=== PATIENT | female | born 1995 | race Caucasian/White ===

== ENCOUNTER 2019-12-24 10:12 | Inpatient (IN) | payer OTHER ==
[2019-12-24] MEDS ORDERED: LIDOCAINE 1% INJ-PF (10 MG/ML) 30 ML SDV ONE (10:22)
[2019-12-24] MEDS ORDERED: MISOPROSTOL 0.2 MG TABLET ONE (10:22)
[2019-12-24] MEDS ORDERED: OXYTOCIN/0.9 % SODIUM CHLORIDE 30 UNIT/500 ML RTUINJ ONE (10:22)
[2019-12-24] MEDS ORDERED: OXYTOCIN 10 UNIT/ML VIAL ONE (10:22)
[2019-12-24] MEDS ORDERED: RINGERS SOLUTION,LACTATED 1,000 ML IV ONE (10:26)
[2019-12-24] MEDS ORDERED: PROMETHAZINE HCL 25 MG SUPP.RECT PR PRN (11:14)
[2019-12-24] MEDS ORDERED: DIPH/PERTUSS(ACELL)/TETANUS VAC/PF 0.5 ML SYR (>=10YO) IM PRN (11:14)
[2019-12-24] MEDS ORDERED: PROMETHAZINE HCL 25 MG TABLET PO PRN (11:14)
[2019-12-24] MEDS ORDERED: DIPHENHYDRAMINE HCL 25 MG CAPSULE PO PRN (11:14)
[2019-12-24] MEDS ORDERED: OXYTOCIN/0.9 % SODIUM CHLORIDE 30 UNIT/500 ML RTUINJ IV PRN (11:14)
[2019-12-24] MEDS ORDERED: PROMETHAZINE HCL INJ 25 MG/1 ML VIAL IV PRN (11:14)
[2019-12-24] MEDS ORDERED: MAGNESIUM HYDROXIDE SUSP 30 ML UDCUP PO PRN (11:14)
[2019-12-24] MEDS ORDERED: ZOLPIDEM TARTRATE 5 MG TABLET PO PRN (11:14)
[2019-12-24] MEDS ORDERED: NA PHOS,M-B/NA PHOS,DI-BA (ADULT) 133 ML ENEMA PR PRN (11:14)
[2019-12-24] MEDS ORDERED: PSEUDOEPHEDRINE HCL 30 MG TABLET PO PRN (11:14)
[2019-12-24] MEDS ORDERED: DIBUCAINE 1% OINTMENT 28 GM TP PRN (11:14)
[2019-12-24] MEDS ORDERED: ACETAMINOPHEN WITH CODEINE #3 TABLET PO PRN ×2 (11:14)
[2019-12-24] MEDS ORDERED: BENZOCAINE/MENTHOL AEROSOL SPRAY 56 ML TOP PRN (11:14)
[2019-12-24] MEDS ORDERED: ACETAMINOPHEN 325 MG TABLET PO PRN (11:14)
[2019-12-24] MEDS ORDERED: MEASLES,MUMPS&RUBELLA VACC/PF 0.5 ML VIAL SUBCUT PRN (11:14)
[2019-12-24] MEDS ORDERED: GLYCERIN/WITCH HAZEL LEAF 1 EACH MED..WIPE TP PRN (11:14)
[2019-12-24 11:35] LABS: ABSOLUTE LYMPHOCYTES (AUTO) 1.2 10^3/uL (0.5-4.7); ABSOLUTE MONOCYTES (AUTO) 0.6 10^3/uL (0.1-1.4); ABSOLUTE NEUT (AUTO) 11.4 10^3/uL (1.7-8.2); BASOPHILS % (AUTO) 0.2 % (0-2); EOSINOPHILS % (AUTO) 0.1 % (0-6); HEMATOCRIT 35.6 % (36.0-47.0); HEMOGLOBIN 11.8 g/dL (12.0-15.5); LYMPHOCYTES % (AUTO) 8.9 % (13-45); MEAN CORPUSCULAR HEMOGLOBIN 26.6 pg (27.0-33.4); MEAN CORPUSCULAR HGB CONC 33.1 g/dL (32.0-36.0); MEAN CORPUSCULAR VOLUME 80 fl (80-97); MONOCYTES % (AUTO) 4.7 % (3-13); PLATELET COUNT 216 10^3/uL (150-450); RED BLOOD COUNT 4.44 10^6/uL (3.72-5.28); RED CELL DISTRIBUTION WIDTH 15.5 % (11.5-14.0); SEGMENTED NEUTROPHILS % (AUTO) 86.1 % (42-78); TOTAL CELLS COUNTED % (AUTO) 100 %; WHITE BLOOD COUNT 13.3 10^3/uL (4.0-10.5)
[2019-12-24] MEDS ORDERED: IBUPROFEN 800 MG TABLET ONE (11:35)
[2019-12-24] MEDS: IBUPROFEN 800 MG TABLET PO SCH ×2 (11:38→21:32)
--- NOTE | 2019-12-24 12:16 | Delivery Summary ---
Del Sum A-C Datetime Report Generated by CPN: 12/24/2019 12:16 DELIVERY PERSONNEL DELIVERY PERSONNEL: [id number] Delivery Doctor:: Mildred Breaux CNM Labor and Delivery Nurse:: Cheyenne Domingo RNjewel bearing driller Nurse:: Dafne Henson RN Nursery Nurse:: Lakia Wallace RN Staff Field Engineer/CHEMICAL DEPENDENCY PROFESSIONAL: Iza Garcia, ST MATERNAL INFORMATION Delivery Anesthesia: None Medications After Delivery: Pitocin 30 Units in 500ml NS/D5W Delivery QBL: 250 Maternal Complications: Precipitous Labor (<3hrs) LABOR SUMMARY EDC: 12/20/2019 00:00 No. Babies in Womb: 1 Attempted: No Labor Anesthesia: None LABOR INFORMATION Reason for Induction: Not Applicable Onset of Labor: 12/24/2019 08:30 Complete Dilatation: 12/24/2019 10:52 Oxytocin: N/A Group B Beta Strep: negative Antibiotics # of Doses: 0 Name of Antibiotic Given: n/a Steroids Given: None Reason Steroids Not Administered: Not Applicable MEMBRANES Membranes Rupture Method: Spontaneous Rupture of Membranes: 12/24/2019 10:00 Length of Rupture (hr): 0.95 Amniotic Fluid Color: Clear Amniotic Fluid Amount: Small Amniotic Fluid Odor: None STAGES OF LABOR Stage 1 hr: 2 Stage 1 min: 22 Stage 2 hr: 0 Stage 2 min: 5 Stage 3 hr: 0 Stage 3 min: 8 Total Time in Labor hr: 2 Total Time in Labor min: 35 VAGINAL DELIVERY Episiotomy: None Laceration #1: None Laceration Extension #1: N/A Sponge Count Correct: N/A Sharps Count Correct: N/A CSECTION DELIVERY Primary Indication: N/A Secondary Indication: N/A CSection Incidence: N/A Labor: N/A Elective: N/A CSection Incision: N/A BABY A INFORMATION Delivery Date/Time: 12/24/2019 10:57 Method of Delivery: Vaginal Nurse Controlled Delivery: No Born in Route : No : N/A Forceps: N/A Vacuum Extraction: N/A Shoulder Dystocia : Yes SHOULDER DYSTOCIA BABY A Delivery of Head: 12/24/2019 10:56 Time Head to Delivery : 1.0 1st Intervention to Resolve: Gentle Attempt at Traction, Assisted by Maternal Expulsive Efforts 2nd Intervention to Resolve: McRobert's Maneuver 3rd Intervention to Resolve: Suprapubic Pressure Verify NO Fundal Pressure: No Fundal Pressure Applied Arm Under Symphisis at Del: Left PRESENTATION/POSITION BABY A Presentation: Cephalic Cephalic Presentation: Vertex Vertex Position: Left Occipital Anterior Breech Presentation: N/A PLACENTA INFORMATION BABY A Placenta Delivery Time : 12/24/2019 11:05 Placenta Method of Delivery: Spontaneous Placenta Status: Delivered SCORES BABY A Heart Rate 1 min: >100 bpm Resp Effort 1 min: Good Cry Reflex Irritability 1 min: Cough or Sneeze or Pulls Away Muscle Tone 1 min: Active Motion Color 1 min: Blue/Pale Resuscitation Effort 1 min: Tactile Stimulation SCORE 1 MIN: 8 Heart Rate 5 min: >100 bpm Resp Effort 5 min: Good Cry Reflex Irritability 5 min: Cough or Sneeze or Pulls Away Muscle Tone 5 min: Active Motion Color 5 min: Body [place], Extremities Blue Resuscitation Effort 5 min: N/A SCORE 5 MIN: 9 INFANT INFORMATION BABY A Gestational Age at Delivery: 40.4 Gestational Status: Full Term- 39- 40.6 Weeks Infant Outcome : Liveborn Infant Condition : Stable Infant Sex: Male IDENTIFICATION BABY A Verification Date/Time: 12/24/2019 11:03 ID Band Number: [id number] Mother's Name Verified: Yes RN Verifying : B Baidy RN Additional Verifying Personnel: A Feuston RN WEIGHT/LENGTH BABY A Birthweight (gm): 4235 Infant Weight (lb): 9 Infant Weight (oz): 5 Infant Length (in): 21.00 Length (cm): 53.34 CORD INFORMATION BABY A No. Cord Vessels: 3 Nuchal Cord : Around Neck x1, Loose Cord Blood Taken: Yes-For Storage (Mom's Blood type +) Infant Suction: Mouth ASSESSMENT BABY A Physical Findings at Delivery: Bruising Physical Findings- Other: facial bruising Infant Respirations: Appears Normal Skin to Skin: Yes Skin to Skin Time (min): 60 Field Artillery Cannoneer/ALS Called : No Infant Care By: Farzana Wallace RN Transferred To: Remains with Mother BABY B INFORMATION : N/A SIGNATURES : I was personally available for consultation and serving as supervising physician for the MLP.
--- NOTE | 2019-12-24 12:16 | Birth Certificate Data ---
Cert Data Datetime Report Generated by CPN: 12/24/2019 12:16 CERTIFICATE DATA 47a. Care: Yes (12/24/2019 10:21:Anaid Crocker RN) 47b. Date of First Visit: 05/20/2019 00:00 (12/24/2019 10:21:Anaid Crocker RN) 47c. Date of Last Visit: 12/21/2019 00:00 (12/24/2019 10:21:Anaid Crocker RN) 47d. Number of Visits: 12 (12/24/2019 10:21:Anaid Crocker RN) 48a. Number of Prev Live Births: 1 (12/24/2019 10:21:Anaid Crocker RN) 48b. Now Livin (12/24/2019 10:21:Anaid Crocker RN) 48c. Live Births Now : 0 (12/24/2019 10:21:QS system process) 48d. Date of Last Live : 03/31/2017 00:00 (12/24/2019 10:21:Anaid Crocker RN) 48e. Losses: 0 (12/24/2019 10:21:Anaid Crocker RN) RISK FACTORS IN THIS 49a. Diabetes: No (12/24/2019 10:21:Cheyenne Domingo RN) 49b. Hypertension: No (12/24/2019 10:21:Cheyenne Domingo RN) 49c. Previous Births: 0 (12/24/2019 10:21:Anaid Crocker RN) 49d. Stillborns: No (12/24/2019 10:21:Anaid Crocker RN) 49d. IUGR: No (12/24/2019 10:21:Anaid Crocker RN) 49e. Infertility Treatment: No (12/24/2019 10:21:Cheyenne Domingo RN) 49f. Previous Cesareans: 0 (12/24/2019 10:21:Anaid Crocker RN) Mother's Height 50b. Height Inches: 61 (12/24/2019 11:57:QS system process) Mother's Weight 51a. Pre- Weight (lbs): 173 (12/24/2019 10:21:Anaid Crocker RN) 51b. Weight at Delivery (lbs): 238 (12/24/2019 11:57:QS system process) 52. Dt Last Normal Menses Began: 05/03/2019 00:00 (12/24/2019 10:21:Cheyenne Domingo RN) Infections Present/Treated 53a. Gonorrhea: No (12/24/2019 10:21:Cheyenne LEESA Domingo) Results this Hospital Visit : Negative (12/24/2019 10:21:Anaid Crocker RN) 53b. Syphilis: No (12/24/2019 10:21:Cheyenne Domingo RN) 53c. Chlamydia: No (12/24/2019 10:21:Cheyenne Domingo RN) Results this Hospital Visit: Negative (12/24/2019 10:21:Anaid Crocker RN) 53d. Hepatitis B: No (12/24/2019 10:21:Cheyenne Domingo RN) Results this Hospital Visit: Negative (12/24/2019 10:21:Anaid Crocker RN) 53e. Hepatitis C: Negative (12/24/2019 10:21:Anaid Crocker RN) 53h. Mother Tested for HBsAG: Yes (12/24/2019 10:21:Anaid Crocker RN) 53i. Date Tested: 05/11/2019 00:00 (12/24/2019 10:21:Anaid Crocker RN) 53j. Test Result: Negative (12/24/2019 10:21:Anaid Crocker RN) Obstetric Procedures 54a, b, c. Obstetric Procedures: Ultrasound (12/24/2019 10:21:Anaid Crocker RN) Cigarette Smoking Cigarette Smoking: Never Smoker. [id number] (12/24/2019 10:21:Cheyenne Domingo RN) 55a. 3 Months Before Preg - Ci (12/24/2019 10:21:June LEESA Domingo) 55b. 1st Trimester of Preg- Ci (12/24/2019 10:21:June LEESA Domingo) 55c. 2nd Trimester of Preg- Ci (12/24/2019 10:21:Cheyenne Domingo RN) 55d. 3rd Trimester of Preg- Ci (12/24/2019 10:21:June LEESA Domingo) Onset of Labor 56a. PROM >12 Hrs: 0.95 (12/24/2019 10:21:QS system process) 56b. Precipitous Labor <3 Hrs: 2 (12/24/2019 10:21:QS system process) 56c. Prolonged Labor > 20 Hrs: 2 (12/24/2019 10:21:QS system process) 57a. Induction of Labor: N/A (12/24/2019 10:21:Anaid Crocker RN) 57c. Non-Vertex Presentation A: Vertex (12/24/2019 10:21:Dafne Henson RN) 57d. Steroids - Lung Mat: None (12/24/2019 10:21:Anaid Crocker RN) 57d. Steroids - Lung Mat: Not Applicable (12/24/2019 10:21:Anaid Crocker RN) 57f. Mat [place] or Temp >100.4: 98.1 (12/24/2019 10:21:Cheyenne Domingo RN) 57g. Moderate/Heavy Meconium: Clear (12/24/2019 11:05:Cheyenne Domingo RN) 57h. Intolerance of Labor: N/A (12/24/2019 10:21:Anaid Crocker RN) : N/A (12/24/2019 10:21:Anaid Crocker RN) 57i. Epidural/Spinal Anesthesia: None (12/24/2019 10:21:Anaid Crocker RN) Method of Delivery 58a. Forceps - Unsuccessful A: N/A (12/24/2019 10:21:Dafne Henson RN) 58b. Vacuum - Unsuccessful A: N/A (12/24/2019 10:21:Dafne Henson RN) 58c. Presentation at 58c. Presentation at - A : Vertex (12/24/2019 10:21:Dafne Henson RN) 58c. Presentation at - A : N/A (12/24/2019 10:21:Anaid Crocker RN) 58c. Presentation at - A : Cephalic (12/24/2019 10:21:Anaid Crocker RN) Final Route and Method of Del 58d. Baby A Route/Delivery: Vaginal (12/24/2019 10:57:Cheyenne Domingo RN) 58e. Trial of Labor Attempted: No (12/24/2019 10:21:Anaid Crocker RN) 58e. Trial of Labor Attempted A: N/A (12/24/2019 10:21:Anaid Crocker RN) 58e. Trial of Labor Attempted B: N/A (12/24/2019 10:21:Anaid Crocker RN) Maternal Morbidity 59b. 3rd or 4th Degree Lacs: None (12/24/2019 10:21:June Chayo, RN) Birthweight Baby A: 4235 (12/24/2019 10:21:June Chayo, RN) 60a. Pounds : 9 (12/24/2019 10:21:QS system process) 60b. Ounces: 5 (12/24/2019 10:21:QS system process) 61. GA at Delivery Baby A: 40.4 (12/24/2019 10:21:Anaid Lizzette, RN) : Full Term- 39- 40.6 Weeks (12/24/2019 10:21:QS system process) 62a. 5 Minute Baby A: 9 12/24/2019 10:21:QS system process)
--- NOTE | 2019-12-24 12:22 | Admission Physical ---
Datetime Report Generated by CPN: 12/24/2019 12:22 CURRENT ADMISSION Chief Complaint: Uterine Contractions; Suspected Ruptured Membranes Chief Complaint Other: SROM at 1000-clear Indication for Induction: Not Applicable Admit Impression : Term, Intrauterine ; Active Labor; Ruptured Membranes Admit Plan: Admit to Unit; Initiate Labor Protocol ALLERGIES Medication Allergies: No Medication Allergies: No Known Allergies (12/24/2019) Latex: No Latex Allergies Food Allergies: none Environmental Allergies: none OBSTETRICAL HISTORY EDC: 12/20/2019 00:00 : 2 Para: 1 Term: 1 : 0 SAB: 0 IAB: 0 Ectopic: 0 Livin Cesareans: 0 VBACs: 0 Multiple Births: 0 Gestational Diabetes: No Rh Sensitization: No Incompetent Cervix: No NAKIA: No Infertility: No ART Treatment: No Uterine Anomaly: No IUGR: No Hx Previous C/S: No Macrosomia: No Hx Loss/Stillborn: No PIH: No Hx : No Placenta Previa/Abruption: No Depression/PP Depression: Yes PTL/PROM: No Post Hemorrhage: No Current Procedures: Ultrasound Obstetrical History Comments: G1- 2018 39 weeks 7#15oz G2- current, failed 1 hour, high wt gain SEE RECORDS Alcohol: No Marijuana : No Cocaine: No Other Illicit Drugs: No Cigarettes: Never Smoker. 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 Surgery: No Heart Disease: No Hosp/Surgery: Yes Autoimmune Disorder: No Anesthetic Complications: No Kidney Disease: No Abnormal Pap Smear: No Neuro/Epilepsy: No Psychiatric Disorders: No Other Medical Diseases: No Hepatitis/Liver Disease: No Significant Family History: No Varicosities/Phlebitis: No Trauma/Violence : No Thyroid Dysfunction: No Medical History Comments: depression- on wellbutrin, childbirth INFECTIOUS HISTORY Gonorrhea: No Genital Herpes: No Chlamydia: No Tuberculosis: No Syphilis: No Hepatitis: No HIV/AIDS Exposure: No Rash or Viral Illness: No HPV: No PHYSICAL EXAM General: Normal HEENT: Normal Neurologic: Normal Thyroid: Deferred Heart: Normal Lungs: Normal Breast: Deferred Back: Normal Abdomen: Normal Genitourinary Exam: Normal Extremities: Normal DTRs: Deferred Pelvic Type: Adequate VAGINAL EXAM Dilatation: 5 Effacement: c Station: 0 Contraction Comments: Q2 mins MEMBRANES Pooling: Positive Membranes: Ruptured Amniotic Fluid Color: Clear FETUS A EGA: 40.4 Monitoring: External US FHR- Baseline: 130 Variability: Moderate 6-25bpm Accelerations: 15X15 Decelerations: Variable FHR Category: Category II Estimated Weight (gm): 3700 Presentation: Oblique Admit Comment: at 40w4d with active labor and SROM. failed 1h gtt, passed 3h. high wt gain in . admitted for active labor. PLANS FOR LABOR AND DELIVERY Labor and Delivery: None Pain Management: Epidural Feeding Preference: Breast Benefit of Breast Feed Discussed: Yes Circumcision: Yes INFORMED CONSENT Informed Consent Obtained: Vaginal Delivery Assignment: Lisette Bell MD Signature: with User ID: [email or web address] : with User ID: [email or web address]
[2019-12-24] MEDS ORDERED: ACETAMINOPHEN 325 MG TABLET ONE (13:14)
--- NOTE | 2019-12-24 13:36 | Warning Signs in Babies ---
VOD Warning Signs Datetime Report Generated by N: 12/24/2019 13:36 VOD#608 -Warning Signs in Babies: Viewed with Parent(s)/Family (12/24/2019 13:35:Cheyenne Domingo RN)
[2019-12-24] MEDS: FERROUS SULFATE 325 MG TABLET PO SCH (18:04)
[2019-12-24] MEDS: DOCUSATE SODIUM 100 MG CAPSULE PO SCH (18:04)
[2019-12-24] MEDS: FAMOTIDINE 20 MG TABLET PO SCH (21:32)
[2019-12-25] MEDS: IBUPROFEN 800 MG TABLET PO SCH ×3 (05:29→21:27)
[2019-12-25 07:42] LABS: HEMATOCRIT 29.2 % (36.0-47.0); HEMOGLOBIN 9.8 g/dL (12.0-15.5); MEAN CORPUSCULAR HEMOGLOBIN 26.9 pg (27.0-33.4); MEAN CORPUSCULAR HGB CONC 33.7 g/dL (32.0-36.0); MEAN CORPUSCULAR VOLUME 80 fl (80-97); PLATELET COUNT 167 10^3/uL (150-450); RED BLOOD COUNT 3.66 10^6/uL (3.72-5.28); RED CELL DISTRIBUTION WIDTH 15.2 % (11.5-14.0)
[2019-12-25] MEDS: DOCUSATE SODIUM 100 MG CAPSULE PO SCH ×2 (09:53→18:27)
[2019-12-25] MEDS: PRENATAL VITAMIN W DHA CAPSULE PO SCH (09:53)
[2019-12-25] MEDS: FAMOTIDINE 20 MG TABLET PO SCH ×2 (09:53→21:27)
[2019-12-25] MEDS: FERROUS SULFATE 325 MG TABLET PO SCH ×2 (09:53→18:27)
[2019-12-25] MEDS: SENNOSIDES/DOCUSATE 8.6-50 MG 1 EACH TABLET PO SCH (09:53)
--- NOTE | 2019-12-25 10:56 | PDOC PROGRESS REPORT ---
Subjective-OB Progress Note for:: 12/25/19 Subjective: reports bleeding slowing, pain controlled with current meds. usually takes wellbutrin 300mg dialy-will order Physical Exam (OB) Vital Signs: Temp Pulse Resp BP Pulse Ox 97.6 F 88 18 137/82 H 96 12/25/19 10:00 12/25/19 07:30 12/25/19 07:30 12/25/19 07:30 12/25/19 07:30 Intake & Output 12/24/19 12/25/19 12/26/19 06:59 06:59 06:59 Intake Total 1000 Balance 1000 Weight 108.046 kg - Maternal Morbidity 59. Maternal Morbidity (serious complications experinced by the mother associated with labor and delivery: None of the above - Abdomen Description: Soft Hernia Present: No Fundal Description: Firm, Midline Fundal Height: u/u - u/2 - Abdominal Distension: No distension Tenderness: Nontender - Extremities Lower extremities: Marisela's sign - neg Calf: Normal, Nontender Objective-Diagnostic Laboratory: 12/25/19 07:13 12/24/19 12/24/19 12/25/19 11:22 11:22 07:13 WBC 13.3 H 11.0 H RBC 4.44 3.66 L Hgb 11.8 L 9.8 L Hct 35.6 L 29.2 L MCV 80 80 MCH 26.6 L 26.9 L MCHC 33.1 33.7 RDW 15.5 H 15.2 H Plt Count 216 167 Seg Neutrophils % 86.1 H Blood Type A POSITIVE Antibody Screen NEGATIVE Assessment and Plan(PN) - Assessment and Plan (1) Precipitous delivery, delivered (current hospitalization) Is this a current diagnosis for this admission?: Yes (2) Shoulder (girdle) dystocia during labor and deliver, delivered Is this a current diagnosis for this admission?: Yes - Time Spent with Patient Time with patient: Less than 15 minutes Medications reviewed and adjusted accordingly: Yes - Disposition Anticipated Discharge Disposition: Home, Self Care Anticipated Discharge Timeframe: within 24 hours
[2019-12-25] MEDS: BUPROPION HCL 75 MG TABLET PO SCH ×2 (13:33→21:27)
[2019-12-26] MEDS: IBUPROFEN 800 MG TABLET PO SCH (05:30)
[2019-12-26] MEDS: DOCUSATE SODIUM 100 MG CAPSULE PO SCH (09:06)
[2019-12-26] MEDS: PRENATAL VITAMIN W DHA CAPSULE PO SCH (09:06)
[2019-12-26] MEDS: BUPROPION HCL 75 MG TABLET PO SCH (09:06)
[2019-12-26] MEDS: FERROUS SULFATE 325 MG TABLET PO SCH (09:06)
[2019-12-26] MEDS: SENNOSIDES/DOCUSATE 8.6-50 MG 1 EACH TABLET PO SCH (09:06)
[2019-12-26] MEDS: FAMOTIDINE 20 MG TABLET PO SCH (09:08)
--- NOTE | 2019-12-26 10:12 | PDOC DISCHARGE SUMMARY ---
Impression - Admit/DC Date/PCP Admission Date/Primary Care Provider: 12/24/19 10:26 DAWSON LANDAVERDE MD Discharge Date: 12/26/19 - Discharge Diagnosis (1) Precipitous delivery, delivered (current hospitalization) Is this a current diagnosis for this admission?: Yes (2) Shoulder (girdle) dystocia during labor and deliver, delivered Is this a current diagnosis for this admission?: Yes - Additional Information Discharge Diet: Regular Discharge Activity: Balance Activity w/Rest, Pelvic Rest Referrals: DAWSON LANDAVERDE MD [Primary Care Provider] - Prescriptions: Ibuprofen [Motrin 800 mg Tablet] 800 mg PO Q8HP PRN #60 tablet PRN Reason: Home Medications: Bupropion HCl [Wellbutrin 100 mg Tablet] 3 tab PO DAILY 12/24/19 95/Iron Fum/Folic/Dha [ + Dha Combo Pack] 1 each PO DAILY 12/24/19 Ibuprofen [Motrin 800 mg Tablet] 800 mg PO Q8HP PRN #60 tablet 12/26/19 Hospital Course 59. Maternal Morbidity (serious complications experinced by the mother associated with labor and delivery: None of the above Results Laboratory Results: WBC 11.0 10^3/uL (4.0-10.5) H 12/25/19 07:13 RBC 3.66 10^6/uL (3.72-5.28) L 12/25/19 07:13 Hgb 9.8 g/dL (12.0-15.5) L 12/25/19 07:13 Hct 29.2 % (36.0-47.0) L 12/25/19 07:13 MCV 80 fl (80-97) 12/25/19 07:13 MCH 26.9 pg (27.0-33.4) L 12/25/19 07:13 MCHC 33.7 g/dL (32.0-36.0) 12/25/19 07:13 RDW 15.2 % (11.5-14.0) H 12/25/19 07:13 Plt Count 167 10^3/uL (150-450) 12/25/19 07:13 Lymph % (Auto) 8.9 % (13-45) L 12/24/19 11:22 Curry % (Auto) 4.7 % (3-13) 12/24/19 11:22 Eos % (Auto) 0.1 % (0-6) 12/24/19 11:22 Baso % (Auto) 0.2 % (0-2) 12/24/19 11:22 Absolute Neuts (auto) 11.4 10^3/uL (1.7-8.2) H 12/24/19 11:22 Absolute Lymphs (auto) 1.2 10^3/uL (0.5-4.7) 12/24/19 11:22 Absolute Monos (auto) 0.6 10^3/uL (0.1-1.4) 12/24/19 11:22 Absolute Eos (auto) 0.0 10^3/uL (0.0-0.6) 12/24/19 11:22 Absolute Basos (auto) 0.0 10^3/uL (0.0-0.2) 12/24/19 11:22 Seg Neutrophils % 86.1 % (42-78) H 12/24/19 11:22 Blood Type A POSITIVE 12/24/19 11:22 Antibody Screen NEGATIVE 12/24/19 11:22 Plan Plan of Treatment: follow up in [address] [facility] [place] for post check
[2019-12-26 11:00] VITALS: BP 132/86
== END 2019-12-26 12:20 | disposition home or self-care (01) | DRG 807 ==
LOC: LC 10:12 → LR 10:26 → 2S 13:59
PROVIDERS: ADMIT Student in an Organized Health Care Education/Training Program; ATTEND Student in an Organized Health Care Education/Training Program
PROC: 10E0XZZ Delivery of Products of Conception, External Approach (ICD-10-PCS; principal; 2019-12-24)
DX: O99.344 Other mental disorders complicating childbirth (principal); Z37.0 Single live birth; O26.03 Excessive weight gain in pregnancy, third trimester; O62.3 Precipitate labor; O66.0 Obstructed labor due to shoulder dystocia; F32.9 Major depressive disorder, single episode, unspecified; O69.81X0 Labor and delivery complicated by cord around neck, without compression, not applicable or unspecified; Z79.899 Other long term (current) drug therapy; Z3A.40 40 weeks gestation of pregnancy
CPT/HCPCS: 36415; 85025; 85027; 86592; 86850; 86900; 86901; J2590; J3490